=== PATIENT | male | born 1985 | race Caucasian/White ===

== ENCOUNTER 2024-03-14 13:15 | Inpatient (IN) | payer SELFPAY ==
[~2024-03-14] VITALS: Ht 193 cm; Wt 66.0 kg
[2024-03-14 13:45] VITALS: BP 112/50
[2024-03-14 13:58] LABS: BASO # 0.1 10*3/uL (0.0-0.1); BASO % 0.9 % (0.0-1.0); EOS # 0.1 10*3/uL (0.0-0.4); EOS % 0.8 % (1.0-4.0); MEAN CELL VOLUME 88.4 fl (80.0-94.0); MEAN CORPUSCULAR HGB 30.1 pg (27.0-31.0); MEAN CORPUSCULAR HGB CONC 34.1 g/dl (33.0-37.0); MEAN PLATELET VOLUME 8.8 fl (9.6-12.3); MONO # 0.8 10*3/uL (0.1-1.0); MONO % 7.6 % (3.0-9.0); NEUT # 8.4 10*3/uL (2.3-7.9); NEUT % 79.6 % (47.0-73.0); PLATELET COUNT AUTOMATED 368 10*3/uL (130-400); RED BLOOD COUNT 5.54 10*6/uL (4.50-5.90); RED CELL DISTRI WIDTH 11.8 % (0-14.5); WHITE BLOOD COUNT 10.5 10*3/uL (4.8-10.8)
[2024-03-14 14:18] LABS: ALKALINE PHOSPHATASE 82 U/L (46-116); BUN 10 mg/dl (9-23); CHLORIDE 101 mmol/L (98-107); LIPASE 32 U/L (12-53); POTASSIUM 3.6 mmol/L (3.4-5.1); SGPT/ALT 13 U/L (5-49)
[2024-03-14] MEDS ORDERED: MORPHINE Sulfate 2 MG/ML SYR IV ONE (16:05)
[2024-03-14 16:14] LABS: BILIRUBIN Negative (Negative); BLOOD Negative (Negative); CLARITY Clear (Clear); COLOR Yellow (Yellow); GLUCOSE Negative (Negative); KETONE Trace (Negative); LEUKO ESTERASE Negative (Negative); NITRITE Negative (Negative); SPECIFIC GRAVITY 1.025 (1.001-1.030)
[2024-03-14] MEDS ORDERED: IOHEXOL 9 MG/ML (IODINE) ORAL SOLUTION PO ONE (16:15)
[2024-03-14] MEDS ORDERED: IOHEXOL 300 MG/ML 100 ML VIAL IV ONE (16:15)
[2024-03-14 16:20] LABS: PH >= 9.0 (4.5-8.0)
[2024-03-14] MEDS ORDERED: Ondansetron Hydrochloride 4 MG/2 ML VIAL IV ONE (16:25)
[2024-03-14] MEDS ORDERED: SODIUM CHLORIDE 0.9% 1,000 ML IV ONE (21:05)
[2024-03-14] MEDS ORDERED: MG-AL HYDROXIDE/SIMETICONE 30 ML UDC PO STA (21:23)
[2024-03-14] MEDS ORDERED: Dicyclomine Hydrochloride 20 MG/10 ML OSYR PO STA (21:23)
[2024-03-14] MEDS ORDERED: Lidocaine Hydrochloride 15 ML UDC PO STA (21:23)
[2024-03-14] MEDS ORDERED: Scopolamine 1 PATCH PATCH T SCH (21:25)
[2024-03-14] MEDS ORDERED: HYDROmorphONE Hydrochloride 1 MG/ML SYR IV ONE ×2 (21:25→22:05)
[2024-03-14] MEDS ORDERED: SODIUM CHLORIDE 0.9% 1,000 ML IV SCH (21:30)
[2024-03-14] MEDS ORDERED: MORPHINE Sulfate 2 MG/ML SYR IV PRN (21:30)
[2024-03-14] MEDS ORDERED: SUCRALFATE 1 GM TAB PO SCH (21:35)
[2024-03-14] MEDS ORDERED: hydrOXYzine pamoate 25 MG CAP PO ONE (21:55)
[2024-03-15] VITALS (10 sets, daily range): BP systolic 89–118; BP diastolic 50–80
[2024-03-15] MEDS ORDERED: Ondansetron Hydrochloride 4 MG/2 ML VIAL IV PRN (02:00)
[2024-03-15 06:28] LABS: HEMATOCRIT 46.6 % (42.0-52.0); MEAN CORPUSCULAR HGB 30.1 pg (27.0-31.0); MEAN CORPUSCULAR HGB CONC 33.5 g/dl (33.0-37.0); MEAN PLATELET VOLUME 9.3 fl (9.6-12.3); PLATELET COUNT AUTOMATED 339 10*3/uL (130-400); RED BLOOD COUNT 5.18 10*6/uL (4.50-5.90); RED CELL DISTRI WIDTH 12.1 % (0-14.5); WHITE BLOOD COUNT 10.1 10*3/uL (4.8-10.8)
[2024-03-15 06:32] LABS: BUN 9 mg/dl (9-23); CHLORIDE 102 mmol/L (98-107); CHOLESTEROL 194 mg/dL (<200); FREE T4 1.11 ng/dl (0.89-1.76); LDL CHOLESTEROL 129 mg/dL (9-159); POTASSIUM 3.4 mmol/L (3.4-5.1); TRIGLYCERIDES 91 mg/dl (<150)
[2024-03-15 06:56] LABS: MANUAL DIFF REFLEX YES
[2024-03-15 08:08] LABS: BASOPHILS 1 % (0-1); PLATELET SUFFICIENCY NORMAL (NORMAL); TOTAL CELLS COUNTED 100 #CELLS
[2024-03-15] MEDS ORDERED: SODIUM CHLORIDE 0.9% 500 ML IV ONE ×2 (09:30→10:23)
[2024-03-15] MEDS ORDERED: Pantoprazole Sodium 40 MG TAB PO SCH (10:00)
[2024-03-15] MEDS ORDERED: SODIUM CHLORIDE 0.9% 1,000 ML IV ONE (10:06)
[2024-03-15] MEDS ORDERED: MORPHINE Sulfate 2 MG/ML SYR IV PRN (12:20)
[2024-03-15] MEDS ORDERED: MORPHINE Sulfate 2 MG/ML SYR ONE (12:38)
[2024-03-15] MEDS ORDERED: PROPOFOL 200 MG/20 ML VIAL IV ONE (14:00)
[2024-03-15] MEDS ORDERED: Lidocaine Hydrochloride 5 ML VIAL IV ONE (14:00)
[2024-03-15] MEDS ORDERED: SUCRALFATE 1 GM TAB PO SCH (16:30)
[2024-03-15] MEDS ORDERED: ACETAMINOPHEN 325 MG TAB PO PRN (17:20)
[2024-03-15] MEDS ORDERED: Acetaminophen/Hydrocodone 5 MG/325 MG TABLET PO PRN (17:20)
[2024-03-15] MEDS ORDERED: Pantoprazole Sodium 40 MG VIAL IV SCH (18:00)
[2024-03-15] MEDS ORDERED: PANTOPRAZOLE SODIUM 80 MG IV SCH (18:00)
[2024-03-16 05:26] LABS: BUN 9 mg/dl (9-23); CHLORIDE 99 mmol/L (98-107); POTASSIUM 3.7 mmol/L (3.4-5.1)
[2024-03-16 06:33] LABS: BASO # 0.1 10*3/uL (0.0-0.1); BASO % 1.1 % (0.0-1.0); EOS # 0.2 10*3/uL (0.0-0.4); EOS % 2.5 % (1.0-4.0); HEMATOCRIT 44.7 % (42.0-52.0); MEAN CELL VOLUME 89.9 fl (80.0-94.0); MEAN CORPUSCULAR HGB 30.2 pg (27.0-31.0); MEAN CORPUSCULAR HGB CONC 33.6 g/dl (33.0-37.0); MEAN PLATELET VOLUME 9.4 fl (9.6-12.3); MONO # 1.1 10*3/uL (0.1-1.0); MONO % 13.2 % (3.0-9.0); NEUT # 4.8 10*3/uL (2.3-7.9); NEUT % 59.9 % (47.0-73.0); PLATELET COUNT AUTOMATED 284 10*3/uL (130-400); RED BLOOD COUNT 4.97 10*6/uL (4.50-5.90); RED CELL DISTRI WIDTH 12.1 % (0-14.5); WHITE BLOOD COUNT 8.1 10*3/uL (4.8-10.8)
[2024-03-16 08:00] VITALS: BP 124/72
[2024-03-16] MEDS ORDERED: Cholecalciferol 2,000 UNIT TABLET (50 MCG) PO SCH (10:00)
[2024-03-16 12:00] VITALS: BP 101/68
[2024-03-16] MEDS ORDERED: Carafate1 GM PO (12:47)
[2024-03-16] MEDS ORDERED: PROTONIX40 MG PO (12:47)
[2024-03-16] MEDS ORDERED: VITAMIN D350 MC2 PO (12:47)
[2024-03-16] MEDS ORDERED: PERCOCET 5-3251 EACH PO (13:35)
== END 2024-03-16 15:00 | disposition home or self-care (01) | DRG 384 ==
LOC: ED 13:15 → EDHOLD 21:10 → 4E 03-15 22:34
PROVIDERS: Internal Medicine; Student in an Organized Health Care Education/Training Program; ADMIT Family Medicine; ATTEND Family Medicine
PROC: 0DB68ZX Excision of Stomach, Via Natural or Artificial Opening Endoscopic, Diagnostic (ICD-10-PCS; principal; 2024-03-15)
DX: K25.9 Gastric ulcer, unspecified as acute or chronic, without hemorrhage or perforation (principal); R65.10 Systemic inflammatory response syndrome (SIRS) of non-infectious origin without acute organ dysfunction; K31.89 Other diseases of stomach and duodenum; K29.70 Gastritis, unspecified, without bleeding; E55.9 Vitamin D deficiency, unspecified; K44.9 Diaphragmatic hernia without obstruction or gangrene; F17.210 Nicotine dependence, cigarettes, uncomplicated; R00.1 Bradycardia, unspecified; R73.9 Hyperglycemia, unspecified; E16.2 Hypoglycemia, unspecified

== ENCOUNTER 2024-10-18 11:27 | Emergency (ER) | payer SELFPAY ==
[~2024-10-18] VITALS: Ht 198.1 cm; Wt 70.3 kg
[~2024-10-18 11:27] MED LIST: Carafate1 GM PO; PERCOCET 5-3251 EACH PO; PROTONIX40 MG PO; VITAMIN D350 MC2 PO
[2024-10-18] MEDS ORDERED: IOHEXOL 300 MG/ML 100 ML VIAL IV ONE (12:00)
[2024-10-18] MEDS ORDERED: Acetaminophen/Oxycodone 5 MG/325 MG TABLET PO ONE (12:00)
[2024-10-18 12:18] LABS: BASO # 0.1 10*3/uL (0.0-0.1); BASO % 0.9 % (0.0-1.0); EOS # 0.1 10*3/uL (0.0-0.4); EOS % 2.3 % (1.0-4.0); MEAN CELL VOLUME 95.8 fl (80.0-94.0); MEAN CORPUSCULAR HGB 32.6 pg (27.0-31.0); MEAN PLATELET VOLUME 8.3 fl (9.6-12.3); MONO # 0.9 10*3/uL (0.1-1.0); MONO % 15.8 % (3.0-9.0); NEUT # 3.9 10*3/uL (2.3-7.9); NEUT % 68.1 % (47.0-73.0); NUCLEATED RED BLOOD CELL 0.0 % (0.0-0.0); NUCLEATED RED BLOOD CELL 0.0 10*3/uL (0.0-0.0); PLATELET COUNT AUTOMATED 194 10*3/uL (130-400); RED CELL DISTRI WIDTH 14.4 % (0-14.5)
[2024-10-18] MEDS ORDERED: IOHEXOL 300 MG/ML 100 ML VIAL ONE (12:25)
[2024-10-18 12:55] LABS: BUN < 5 mg/dl (9-23); SGPT/ALT 12 U/L (5-49)
[2024-10-18] MEDS ORDERED: ANUSOL HC30 GM PO (15:07)
[2024-10-18] MEDS ORDERED: ANUSOL-HC25 MG R (15:07)
[2024-10-18] MEDS ORDERED: TRAMADOL HCL50 MG PO (15:07)
== END 2024-10-18 15:17 | disposition home or self-care (01) ==
LOC: ED 11:27
PROVIDERS: Nurse Practitioner Family
DX: K64.9 Unspecified hemorrhoids (principal); K21.9 Gastro-esophageal reflux disease without esophagitis; F17.200 Nicotine dependence, unspecified, uncomplicated; Z79.899 Other long term (current) drug therapy